=== PATIENT | male | born 1960 ===

== ENCOUNTER 2023-09-24 12:18 | Outpatient (CLI) | payer OTHER | END 2023-09-24 12:19 | disposition home or self-care (01) | LOC: CSHMRI 12:18 | PROVIDERS: ATTEND Neurological Surgery | DX: M47.26 Other spondylosis with radiculopathy, lumbar region (principal); R26.89 Other abnormalities of gait and mobility; M47.812 Spondylosis without myelopathy or radiculopathy, cervical region; M48.02 Spinal stenosis, cervical region; M47.814 Spondylosis without myelopathy or radiculopathy, thoracic region; R93.7 Abnormal findings on diagnostic imaging of other parts of musculoskeletal system; M51.17 Intervertebral disc disorders with radiculopathy, lumbosacral region; M48.07 Spinal stenosis, lumbosacral region | CPT/HCPCS: 72110; 72131; 72141; 72146 ==